=== PATIENT | female | born 1965 | race Caucasian/White ===

== ENCOUNTER 2024-02-07 09:25 | Outpatient (CLI) | payer MEDICARE, SELFPAY ==
--- NOTE | 2024-02-07 09:48 | ECG_ITS ---
SEE SCANNED COPY FOR CONFIRMED REPORT MTDD
[2024-02-07 10:26] LABS: Anion Gap 5 mmol/L (4-12); Blood Urea Nitrogen 11 mg/dL (7-17); Calcium 9.2 mg/dL (8.4-10.2); Carbon Dioxide 31 mmol/L (22-30); Chloride 103 mmol/L (98-107); Estimated Glomerular Filt Rate > 60; Glucose 108 mg/dL (65-110); Potassium 4.2 mmol/L (3.4-5.0); Sodium 139 mmol/L (137-145)
== END 2024-02-07 09:26 | disposition home or self-care (01) ==
LOC: ANHSURGERY 09:34
PROVIDERS: Anesthesiology; Visit Provider Neurological Surgery
DX: Z01.818 Encounter for other preprocedural examination (principal); E78.5 Hyperlipidemia, unspecified; Z79.899 Other long term (current) drug therapy
CPT/HCPCS: 36415; 80048; 93005

== ENCOUNTER 2024-02-14 00:28 | Day surgery (SDC) | payer MEDICARE, SELFPAY ==
[2024-02-03 12:56] VITALS: BMI 24.0
--- NOTE | 2024-02-03 13:06 | PC.NURSE ---
Report to the Outpatient Waiting Room, entrance under the green pavilion located off [facility], at time _1100_ on date _[id number]_. Planned Procedure Time: _1pm_. Time changes happen often and if your time is changed the preop area will call you the afternoon before. - You and your visitor will be asked to self-screen and do not enter if you have any COVID symptoms. - A mask is optional within the hospital at this time. Patients may have clear liquids (water, carbonated beverages, clear teas, apple juice) until 3 hours prior to surgery with a maximum of 20 ounces. - No food from midnight until time of surgery Take the following medications with a SIP of water the morning of surgery: __Gabapentin and Levothyroxine DO NOT STOP ANY OF YOUR OTHER PRESCRIPTION MEDICATIONS PRIOR TO SURGERY ?EXCEPT THE FOLLOWING Medications to discontinue per physician None____ Date to take last dose Please no make-up, nail greenlandic, hairspray, perfume, deodorant, or body powder the day of surgery. No jewelry (including any body piercings) or valuables the day of surgery, leave them at home. Please take a shower or bath the night before, or the morning of, surgery with an antibacterial soap. Wear comfortable, loose fitting clothing. - Jewelry must be removed prior to entering the operating room. Rings and piercings that are not removed may be cut off. - The hospital will not accept responsibility for valuables. - Please leave all valuables, including medications, at home the day of surgery. If you are going home after surgery, a licensed local company hazmat driver must drive you home. - NO public transportation without another adult if you receive anesthesia. - We recommend that an adult stay with you for 24 hours following discharge. - We also recommend that you do not drive, make important decision, drink alcoholic beverages, or take any drugs that were not prescribed by your health care provider for at least 24 hours after your discharge time. Follow any additional instructions given to you from your surgeon. If you or anyone in your household have experienced Covid symptoms in the past week, please notify your surgeon or the nurse liaison at the phone number below for possible testing. Telephone instructions given to __Jane__and asked if any additional questions and then verbalized understanding. Patient advised to call surgeon office or pre surgery nurse liaison [phone] if any additional questions.
--- NOTE | ~2024-02-14 | XR_ITS ---
EXAMINATION: XR fluoroscopy no charge DATE: 02/14/2024 12:16 INDICATION: Chronic neck and arm pain. TECHNIQUE: A single intraoperative fluoroscopic view of the chest was obtained. I was not present. Fl uoroscopy exposure time was 2 seconds. COMPARISON: None. FINDINGS: Electrodes overlie the spine. IMPRESSION: 1. Electrodes overlie the spine. Reviewed, dictated and finalized at location A.
--- NOTE | 2024-02-14 10:44 | PM.IMHP ---
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 This was eventually treated with cervical dorsal column stimulation. The original trial and the original implant were both quite helpful. However, not long after the efficacy reduced and high impedances were found in the leads. She stopped using the device and has not used it for some time. While she continues to have discomfort she has learned to manage with that. She is interested in having the device removed because she needs to have MRIs done for another process and recurrent device is not MRI compatible. She continues to have pain left upper extremity all the way down to the hand. She has contractures in the ulnar digits and weakness in the left hand. She otherwise does not report specific muscle group weakness or bowel or bladder difficulties. Review of Systems Review of Systems: Const Details: Const All systems reviewed & are unremarkable except as noted in HPI and below Denies chills, Denies fever(s), Denies weakness, Denies weight gain and Denies weight loss Eyes Denies change in vision and Denies diplopia ENT Denies neck pain and Denies disequilibrium Card Denies chest pain and Denies dyspnea Resp Denies cough and Denies dyspnea GI Denies abdominal pain, Denies change in bowel habits, Denies fecal incontinence and Denies vomiting Denies hematuria, Denies oliguria, Denies difficulty urinating, Denies dysuria, Denies urinary frequency, Denies urinary hesitancy, Denies urinary incontinence and Denies urinary urgency Musc Reports as per HPI, Reports back pain, Denies muscle weakness, Denies neck pain, Reports numbness and Denies stiffness Skin/ Breast Reports system reviewed and no additional complaints, except as documented Neuro Reports as per HPI, Denies burning sensations, Denies focal weakness, Reports numbness, Denies Other visual disturbances, Reports radicular pain, Reports paresthesias, Denies disequilibrium and Denies weakness Psych Reports no additional complaints, Denies depression and Denies hopelessness Endo Reports no additional complaints and Denies polyuria Francis/ Lymph Reports no additional complaints Aller/ Immun Reports no additional complaints [facility] Surgical History Surgical History (Updated 01/17/24 @ 10:42 by Marga Mahmood MA) H/O: hysterectomy S/P cubital tunnel release Family History Family History (Updated 01/17/24 @ 10:59 by Marga Mahmood MA) Father Alcohol abuse Cancer Hypertension Heart disease Mother Hypertension Heart disease Sibling Alcohol abuse Hypertension Grandparent Alcohol abuse Cancer Social History Social History (Updated 01/17/24 @ 10:42 by Marga Mahmood MA) Smoking status: Never smoker Alcohol intake: never Substance use: never Substance use type: does not use Do You Feel Safe in your Home?: Yes Lack of Transportation: No Lack of Food: Never True Current Housing: I Have Housing Concerned About Future Housing: No Difficulty Paying Gas/Electric Bills: No Difficulty Paying for Meds: No Currently Unemployed: No Education: Bachelor's Degree Difficulty w/ Childcare or Family Care: No Living arrangements: with family Spiritual care concerns: No Meds Home Medications and Allergies Home Medications Medication Instructions Recorded Confirmed Type gabapentin 600 mg tablet 600 mg PO TID 01/17/24 02/03/24 History levothyroxine 25 mcg tablet 25 mcg PO DAILY 01/17/24 02/03/24 History lorazepam 1 mg tablet 1 mg PO HS PRN Insomnia 01/17/24 02/03/24 History rizatriptan 10 mg tablet 10 mg PO DAILY PRN Migraine 01/17/24 02/03/24 History Headache rosuvast
--- NOTE | 2024-02-14 10:49 | WPDHPUPDATE1 ---
History and Physical Update Update Date/Time: 02/14/24 10:49 History and Physical has been reviewed, including an updated exam of the patient. There are NO changes in the patient's condition. Risks, benefits, and alternatives have been discussed and questions answered. Patient agrees to proceed with procedure.
--- NOTE | 2024-02-14 10:52 | P.PNAN_ITS ---
Anes - Initial Pre Proc Eval Procedure: Operation Date: 02/14/24 10:30 Proposed Procedures p Removal Dorsal Column Stimulator Lead and Generator - Gorge Vu MD Date/Time: 02/14/24 10:52 Surgeon: Gorge Vu MD Pre Op Diagnosis: chronic neck and arm pain Patient Data Age: 59 Gender: F Height: 1.75 m Weight: 74 kg Allergies Allergy/AdvReac Type Severity Reaction Status Date / Time tetracycline Allergy Intermediate Hives Verified 02/03/24 12:54 Home Medications Medication Instructions Recorded Confirmed Type gabapentin 600 mg tablet 600 mg PO TID 01/17/24 02/03/24 History levothyroxine 25 mcg tablet 25 mcg PO DAILY 01/17/24 02/03/24 History lorazepam 1 mg tablet 1 mg PO HS PRN Insomnia 01/17/24 02/03/24 History rizatriptan 10 mg tablet 10 mg PO DAILY PRN Migraine 01/17/24 02/03/24 History Headache rosuvastatin 20 mg tablet 20 mg PO HS 01/17/24 02/03/24 History triamterene 37.5 1 tablet PO DAILY 01/17/24 02/03/24 History mg-hydrochlorothiazide 25 mg tablet Patient hx anesthesia problems: none Family hx anesthesia problems: none Results Review: All pre-operative results and documents have been reviewed as part of the pre-operative evaluation. [facility] Past Medical History Medical History (Updated 02/14/24 @ 10:52 by Michael Anthony MD) Thyroid disease Surgical History Surgical History H/O: hysterectomy S/P cubital tunnel release Family History Family History Father Alcohol abuse Cancer Hypertension Heart disease Mother Hypertension Heart disease Sibling Alcohol abuse Hypertension Grandparent Alcohol abuse Cancer Social History Social History Smoking status: Never smoker Alcohol intake: never Substance use: never Substance use type: does not use Do You Feel Safe in your Home?: Yes Lack of Transportation: No Lack of Food: Never True Current Housing: I Have Housing Concerned About Future Housing: No Difficulty Paying Gas/Electric Bills: No Difficulty Paying for Meds: No Currently Unemployed: No Education: Bachelor's Degree Difficulty w/ Childcare or Family Care: No Living arrangements: with family Spiritual care concerns: No Anes - Eval Final PreProcedure Day of Procedure 02/14/24 10:52 Patient weight: normal Heart: regular rate and rhythm Lungs: clear to auscultation Airway: Mallampati scale class II Neurological: alert and oriented Last oral intake: >/= 8 hours ASA classification: II Emergent: no Anesthetic plan: proceed Anesthesia type and monitoring: general ETT and standard monitoring Results Review: All pre-operative results and documents have been reviewed as part of the pre- operative evaluation. Informed Consent: The patient's anesthetic plan and its attendant risks and benefits were discussed with the patient/family/POA. Questions were solicited and answers provided to the satisfaction of the patient/family/POA.
[2024-02-14 11:00] VITALS: BP 133/75; PULSE 84; RESP 14; TEMP 36.7; O2SAT 100
[2024-02-14] MEDS: LACTATED RINGERS 1,000 ML 30 ML IV CONT (11:00)
[2024-02-14] MEDS: ceFAZolin 2 GM/D5W 50 ML 2 GM/50 ML BAG IVPB (11:18)
[2024-02-14] MEDS: LIDO 1%/EPINEPHRINE 1:100,000 50 ML VIAL 10 ML INFILTRATE (11:41)
--- NOTE | 2024-02-14 11:50 | P.OP_ITS ---
Procedure Note - Detailed Date of Procedure 02/14/24 Pre-op Diagnosis chronic neck and arm pain Post-op Diagnosis Same Procedure Performed Removal of dorsal column stimulator lead and generator, cervical Surgeon Gorge Vu MD Anesthesia General Description of Procedure The patient was brought to the operating room in the supine position, was sedated, intubated and placed under general anesthesia in routine fashion. She was then turned into the prone position on an open Luc table. The of operation on her back was examined, marked for incision, prepped and draped in routine sterile fashion. Incision was marked transversely in the right flank over the previous incision and over the previous incision in the high thoracic spine longitudinally. These areas were injected with 0.5% lidocaine with 1- 447260 epinephrine. Intravenous antibiotics given prior to incision. Incision was made with a 10 blade scalpel in both areas. Sharp dissection was used to discover the generator and was removed with a clamp from the pocket. A small screwdriver was used to remove the wires from the generator. The generator was passed off the field. At the thoracic incision Bovie cautery was used to discover the wires and then to pull them through from the flank incision. The anchors were cut from the spinous processes using Bovie cautery. The entire lead was then removed and passed off the field. Both incisions were copiously irrigated with bacitracin irrigation all bleeding stopped with bipolar and Bovie cautery. The wounds were then closed in layered fashion with 2-0 Vicryl interrupted sutures in Frank's layer and 3-0 Vicryl buried interrupted sutures in the dermis and a running 4-0 Monocryl subcuticular stitch in the skin were dressed with Dermabond. The patient was allowed to wake up in the operating room and was taken to recovery room in stable condition. There were no immediate complications of this operation. All counts were reported correct at the end the case. Blood loss was 1 cc. The patient was neurologically at her baseline postoperatively. Estimated Blood Loss 1 IV Fluids 500 Complications None Condition Stable Disposition PACU [facility] Billing Surgery - Charge Forward: Surgery Billing
[2024-02-14 12:03] VITALS: BP 130/73; PULSE 92; RESP 17; TEMP 36.6; O2SAT 100
[2024-02-14 12:15] VITALS: BP 125/70; PULSE 90; RESP 14; O2SAT 100
[2024-02-14 12:30] VITALS: BP 119/75; PULSE 80; RESP 18; O2SAT 100
[2024-02-14 12:45] VITALS: BP 106/58; PULSE 82; RESP 16; O2SAT 98
[2024-02-14 12:55] VITALS: BP 119/60; PULSE 85
== END 2024-02-14 13:25 | disposition home or self-care (01) ==
PROVIDERS: Visit Provider Neurological Surgery
PROC: (CPT 63688; principal; 2024-02-14 10:30)
DX: Z45.42 Encounter for adjustment and management of neurostimulator (principal); M79.602 Pain in left arm; G89.29 Other chronic pain; E07.9 Disorder of thyroid, unspecified
CPT/HCPCS: 63688; 63661; 99199; A9270; J0330; J0690; J1100; J2250; J2405; J2704; J3010; J7120